=== PATIENT | male | born 1995 | race Caucasian/White ===

== ENCOUNTER 2017-09-29 17:01 | Emergency (ER) | payer BC ==
[2017-09-29 18:08] LABS: ABSOLUTE LYMPHOCYTES (AUTO) 1.2 10^3/uL (0.5-4.7); ABSOLUTE MONOCYTES (AUTO) 0.6 10^3/uL (0.1-1.4); ABSOLUTE NEUT (AUTO) 7.2 10^3/uL (1.7-8.2); BASOPHILS % (AUTO) 0.5 % (0-2); EOSINOPHILS % (AUTO) 0.4 % (0-6); HEMATOCRIT 46.3 % (37.9-51.0); HEMOGLOBIN 15.6 g/dL (13.5-17.0); LYMPHOCYTES % (AUTO) 13.5 % (13-45); MEAN CORPUSCULAR HEMOGLOBIN 30.2 pg (27.0-33.4); MEAN CORPUSCULAR HGB CONC 33.8 g/dL (32.0-36.0); MEAN CORPUSCULAR VOLUME 89 fl (80-97); MONOCYTES % (AUTO) 6.5 % (3-13); PLATELET COUNT 207 10^3/uL (150-450); RED BLOOD COUNT 5.19 10^6/uL (4.35-5.55); RED CELL DISTRIBUTION WIDTH 12.6 % (11.5-14.0); SEGMENTED NEUTROPHILS % (AUTO) 79.1 % (42-78); TOTAL CELLS COUNTED % (AUTO) 100 %; WHITE BLOOD COUNT 9.1 10^3/uL (4.0-10.5)
[2017-09-29 18:26] LABS: ALANINE AMINOTRANSFERASE 24 U/L (21-72); ALBUMIN 4.9 g/dL (3.5-5.0); ALKALINE PHOSPHATASE 57 U/L (38-126); ANION GAP 18 (5-19); ASPARTATE AMINO TRANSFERASE 20 U/L (17-59); BILIRUBIN,DIRECT 0.2 mg/dL (0.0-0.4); BILIRUBIN,TOTAL 1.2 mg/dL (0.2-1.3); BLOOD UREA NITROGEN 14 mg/dL (7-20); CALCIUM 9.8 mg/dL (8.4-10.2); CARBON DIOXIDE 24 mmol/L (22-30); CHLORIDE 100 mmol/L (98-107); CREATINE KINASE 78 U/L (55-170); GLUCOSE 133 mg/dL (75-110); POTASSIUM 4.6 mmol/L (3.6-5.0); SODIUM 141.8 mmol/L (137-145); TOTAL PROTEIN 7.5 g/dL (6.3-8.2)
[2017-09-29 18:37] LABS: CREATINE KINASE MB 0.92 ng/mL (<4.55); TROPONIN I 0.016 ng/mL
[2017-09-29] MEDS ORDERED: IBUPROFEN 800 MG TABLET PO ONE (18:41)
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
[2017-09-29 19:30] VITALS: BP 120/72
--- NOTE | 2017-09-30 09:48 | EKG REPORT ---
SEVERITY:- ABNORMAL ECG - SINUS RHYTHM INCOMPLETE RIGHT BUNDLE BRANCH BLOCK : Confirmed by: Alexandra Chung 30-Sep-2017 09:47:30
== END 2017-09-29 20:18 | disposition home or self-care (01) ==
LOC: ER 17:01
DX: S92.422A Displaced fracture of distal phalanx of left great toe, initial encounter for closed fracture (principal); S90.111A Contusion of right great toe without damage to nail, initial encounter; S80.212A Abrasion, left knee, initial encounter; V86.56XA Driver of dirt bike or motor/cross bike injured in nontraffic accident, initial encounter; Y93.89 Activity, other specified; R42 Dizziness and giddiness; R61 Generalized hyperhidrosis; Z88.0 Allergy status to penicillin; Z87.891 Personal history of nicotine dependence
CPT/HCPCS: 36415; 80053; 82550; 82553; 82962; 83036; 84484; 85025; 93005; 93010; 99284

== ENCOUNTER 2018-01-15 17:20 | Emergency (ER) | payer BC ==
[2018-01-15] MEDS ORDERED: HYDROCODONE/ACETAMINOPHEN 5-325 MG (6 TAB/ER DISP) PO PRN (18:55)
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
--- NOTE | 2018-01-15 19:05 | RADIOLOGY REPORT (SQ) ---
EXAM DESCRIPTION: WRIST LEFT 3 VIEWS COMPLETED DATE/TIME: 01/15/2018 6:34 pm REASON FOR STUDY: pain COMPARISON: None. NUMBER OF VIEWS: Three views. TECHNIQUE: AP, lateral, and oblique radiographic images acquired of the left wrist. LIMITATIONS: None. FINDINGS: MINERALIZATION: Normal. BONES: There is a small avulsion fragment dorsal to the middle carpal row on lateral view. SOFT TISSUES: Diffuse soft tissue swelling about the dorsum of the wrist. OTHER: No other significant finding. IMPRESSION: Small avulsion fragment dorsal to the middle carpal row on lateral view, characteristic in appearance for triquetral avulsion fracture. There is associated soft tissue swelling. The carpu s is otherwise normally aligned and joint spaces are preserved. TECHNICAL DOCUMENTATION: JOB ID: [id number] [employer]- All Rights Reserved Reading location - IP/workstation name: [email or web address]
[2018-01-15 19:23] VITALS: BP 127/84
== END 2018-01-15 19:32 | disposition home or self-care (01) ==
LOC: ER 17:20
DX: S62.115A Nondisplaced fracture of triquetrum [cuneiform] bone, left wrist, initial encounter for closed fracture (principal); V86.96XA Unspecified occupant of dirt bike or motor/cross bike injured in nontraffic accident, initial encounter; Y93.79 Activity, other specified sports and athletics
CPT/HCPCS: 99283

== ENCOUNTER 2019-06-14 15:26 | Emergency (ER) | payer OTHER, BC ==
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
[2019-06-14] MEDS ORDERED: MORPHINE SULFATE 10 MG/ML INJ IV ONE (15:56)
[2019-06-14] MEDS ORDERED: ONDANSETRON HCL INJ/PF 4 MG/2 ML SDV IV ONE (15:56)
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
[2019-06-14] MEDS ORDERED: KETOROLAC TROMETHAMINE INJ/PF 30 MG/1 ML SDV IV ONE (16:35)
[2019-06-14] MEDS ORDERED: OXYCODONE-ACETAMINOPHEN 5-325 MG TABLET PO ONE (16:35)
[2019-06-14 17:57] VITALS: BP 145/80
== END 2019-06-14 17:54 | disposition home or self-care (01) ==
LOC: ER 15:26
DX: S16.1XXA Strain of muscle, fascia and tendon at neck level, initial encounter (principal); S29.012A Strain of muscle and tendon of back wall of thorax, initial encounter; S09.90XA Unspecified injury of head, initial encounter; V86.06XA Driver of dirt bike or motor/cross bike injured in traffic accident, initial encounter; Y93.59 Activity, other involving other sports and athletics played individually; Z88.0 Allergy status to penicillin
CPT/HCPCS: 99284; 96374; 96375; 72070; 70450; 72125; J1885; J2270; J2405